=== PATIENT | female | born 1940 | race Caucasian/White ===

== ENCOUNTER 2016-07-06 08:00 | Outpatient (CLI) | payer MEDICARE | END 2016-07-06 23:59 | DX: N30.00 Acute cystitis without hematuria (principal) ==

== ENCOUNTER 2016-08-24 11:23 | Outpatient (CLI) | payer MEDICARE | END 2016-08-24 11:24 | DX: R30.0 Dysuria (principal) ==

== ENCOUNTER 2016-10-05 10:11 | Outpatient (CLI) | payer MEDICARE | END 2016-10-05 10:12 | disposition home or self-care (01) | DX: E03.9 Hypothyroidism, unspecified (principal); Z79.01 Long term (current) use of anticoagulants; I82.409 Acute embolism and thrombosis of unspecified deep veins of unspecified lower extremity ==

== ENCOUNTER 2016-10-12 15:29 | Outpatient (CLI) | payer MEDICARE | END 2016-10-12 15:30 | disposition home or self-care (01) | DX: I80.02 Phlebitis and thrombophlebitis of superficial vessels of left lower extremity (principal); Z79.01 Long term (current) use of anticoagulants ==

== ENCOUNTER 2016-10-15 07:41 | Outpatient (CLI) | payer MEDICARE | END 2016-10-15 07:42 | disposition home or self-care (01) | DX: Z79.01 Long term (current) use of anticoagulants (principal); I82.409 Acute embolism and thrombosis of unspecified deep veins of unspecified lower extremity ==

== ENCOUNTER 2016-10-15 13:34 | Emergency (ER) | payer MEDICARE | END 2016-10-15 17:24 | disposition home or self-care (01) | DX: R19.5 Other fecal abnormalities (principal); R79.1 Abnormal coagulation profile; I82.409 Acute embolism and thrombosis of unspecified deep veins of unspecified lower extremity; Z79.01 Long term (current) use of anticoagulants; Z87.891 Personal history of nicotine dependence ==

== ENCOUNTER 2016-10-18 14:53 | Outpatient (CLI) | payer MEDICARE | END 2016-10-18 14:54 | disposition home or self-care (01) | DX: Z79.01 Long term (current) use of anticoagulants (principal); I82.409 Acute embolism and thrombosis of unspecified deep veins of unspecified lower extremity ==

== ENCOUNTER 2016-10-25 13:08 | Outpatient (CLI) | payer MEDICARE | END 2016-10-25 13:09 | disposition home or self-care (01) | DX: Z79.01 Long term (current) use of anticoagulants (principal); I82.409 Acute embolism and thrombosis of unspecified deep veins of unspecified lower extremity ==

== ENCOUNTER 2016-11-01 13:50 | Outpatient (CLI) | payer MEDICARE | END 2016-11-01 13:51 | disposition home or self-care (01) | DX: Z79.01 Long term (current) use of anticoagulants (principal); I82.409 Acute embolism and thrombosis of unspecified deep veins of unspecified lower extremity ==

== ENCOUNTER 2016-11-04 08:00 | Outpatient (CLI) | payer MEDICARE | END 2016-11-04 08:01 | disposition home or self-care (01) | DX: R82.5 Elevated urine levels of drugs, medicaments and biological substances (principal); R30.0 Dysuria ==

== ENCOUNTER 2016-11-08 11:24 | Outpatient (CLI) | payer MEDICARE | END 2016-11-08 11:25 | disposition home or self-care (01) | DX: Z79.01 Long term (current) use of anticoagulants (principal); I82.409 Acute embolism and thrombosis of unspecified deep veins of unspecified lower extremity ==

== ENCOUNTER 2016-11-15 13:08 | Outpatient (CLI) | payer MEDICARE | END 2016-11-15 13:09 | disposition home or self-care (01) | DX: Z79.01 Long term (current) use of anticoagulants (principal); I82.409 Acute embolism and thrombosis of unspecified deep veins of unspecified lower extremity ==

== ENCOUNTER 2016-11-29 13:10 | Outpatient (CLI) | payer MEDICARE ==
[2016-11-29 18:03] LABS: BASOPHILS % (AUTO) 0.8 %; EOSINOPHILS # (AUTO) 0.1 10^3/uL (0.0-0.7); EOSINOPHILS % (AUTO) 2.5 %; HCT - HEMATOCRIT 41.2 % (37.0-47.0); HGB - HEMOGLOBIN 13.7 g/dL (12.0-16.0); LYMPHOCYTES # (AUTO) 0.9 10^3/uL (1.5-3.5); LYMPHOCYTES % (AUTO) 16.1 %; MEAN CORPUSCULAR HEMOGLOBIN 27.5 pg (27.0-31.0); MEAN CORPUSCULAR HGB CONC 33.2 g/dL (32.0-36.0); MEAN CORPUSCULAR VOLUME 82.8 fL (81.0-99.0); MEAN PLATELET VOLUME 7.2 fL (7.9-10.8); MONOCYTES # (AUTO) 0.4 10^3/uL (0.0-1.0); MONOCYTES % (AUTO) 6.2 %; NEUTROPHILS # (AUTO) 4.2 10^3/uL (1.5-6.6); NEUTROPHILS % (AUTO) 74.4 %; RED BLOOD COUNT 4.98 10^6/uL (4.20-5.40); RED CELL DISTRIBUTION WIDTH 15.2 % (12.0-15.0); UNCORRECTED WHITE BLOOD COUNT 5.7 x10^3/uL; WHITE BLOOD COUNT 5.7 x10^3/uL (4.8-10.8)
[2016-11-29 18:23] LABS: INR 2.8 (0.8-1.2); PT - PROTHROMBIN TIME 31.5 secs (9.9-12.6)
[2016-11-29 19:07] LABS: ALBUMIN/GLOBULIN RATIO 1.3 (1.0-2.2); BILIRUBIN,TOTAL 0.5 mg/dL (0.2-1.0); BUN - BLOOD UREA NITROGEN 21 mg/dL (6-20); CALCIUM 9.1 mg/dL (8.5-10.3); CARBON DIOXIDE - CO2 30 mmol/L (21-32); CHLORIDE 103 mmol/L (101-111); CREATININE 0.8 mg/dL (0.4-1.0); GFR - MDRD 70 (>89); GLUCOSE 89 mg/dL (70-100); POTASSIUM 4.3 mmol/L (3.5-5.0); SODIUM 139 mmol/L (135-145)
[2016-11-29 19:14] LABS: LIPASE < 10 U/L (22-51)
== END 2016-11-29 13:11 | disposition home or self-care (01) ==
LOC: LAB.F 13:10
PROVIDERS: ATTEND Internal Medicine
DX: R10.84 Generalized abdominal pain (principal); I82.409 Acute embolism and thrombosis of unspecified deep veins of unspecified lower extremity
CPT/HCPCS: 36415; 80053; 83690; 85025; 85610

== ENCOUNTER 2016-12-01 11:00 | Outpatient (CLI) | payer MEDICARE | END 2016-12-01 11:01 | disposition home or self-care (01) | LOC: LAB.R 11:00 | PROVIDERS: ATTEND Nurse Practitioner Primary Care | DX: N30.00 Acute cystitis without hematuria (principal) | CPT/HCPCS: 87086 ==

== ENCOUNTER 2016-12-02 12:43 | Outpatient (CLI) | payer MEDICARE ==
[2016-12-02] MEDS ORDERED: IOPAMIDOL-300 100 ML VIAL IVP ONE (14:38)
[2016-12-02] MEDS ORDERED: IOPAMIDOL-300 50 ML VIAL PO ONE (14:38)
--- NOTE | 2016-12-03 09:50 | CT Report ---
CT ABDOMEN AND PELVIS WITH CONTRAST: 12/02/2016 CLINICAL INDICATION: Abdominal pain, urinary retention. COMPARISON: 12/08/2012 TECHNIQUE: Axial CT images of the abdomen and pelvis were obtained with 100 mL Isovue-300 intravenou sly as well as oral contrast. In accordance with CT protocol optimization, one or more of the following dose reduction techniques w ere utilized for this exam: automated exposure control, adjustment of mA and/or KV based on patient size, or use of iterative reconstructive technique. FINDINGS: Limited evaluation of the lung bases is unremarkable. Abdomen: Postoperative changes of cholecystectomy are unchanged. Biliary dilatation appears stable. There is pancreatic atrophy. The spleen, kidneys, and adrenal glands are unremarkable. No bowel d ilatation, free gas, or free fluid is present. No abdominal adenopathy is seen. Pelvis: There is a 2-cm cyst in the right adnexa, likely ovarian in origin. Postoperative changes o f hysterectomy are present. The appendix is seen in the right lower quadrant, and is normal in calib er. No pelvic adenopathy or free fluid is present. Osseous structures demonstrate degenerative changes. IMPRESSION: 1. A 2-CM RIGHT ADNEXAL CYST, LIKELY OVARIAN IN ORIGIN. 2. PANCREATIC ATROPHY. 3. NO EVIDENT ETIOLOGY FOR PATIENT'S PAIN OR URINARY RETENTION. JOB #: [id number] EXT JOB #:[id number]
== END 2016-12-02 12:44 | disposition home or self-care (01) ==
LOC: DI 12:43
PROVIDERS: ATTEND Internal Medicine
DX: R10.84 Generalized abdominal pain (principal); R33.9 Retention of urine, unspecified; N94.89 Other specified conditions associated with female genital organs and menstrual cycle; K86.89 Other specified diseases of pancreas
CPT/HCPCS: 74177; Q9967

== ENCOUNTER 2016-12-08 13:15 | Outpatient (CLI) | payer MEDICARE | END 2016-12-08 13:16 | disposition home or self-care (01) | LOC: LAB.F 13:15 | PROVIDERS: ATTEND Internal Medicine | DX: Z79.01 Long term (current) use of anticoagulants (principal) | CPT/HCPCS: 85610 ==

== ENCOUNTER 2016-12-22 08:10 | Outpatient (CLI) | payer MEDICARE ==
--- NOTE | 2016-12-22 10:29 | Ultrasound Report ---
LEFT LEG VENOUS DUPLEX: 12/22/2016 CLINICAL INDICATION: History of DVT following surgery in August. TECHNIQUE: Real-time sonographic vascular imaging was performed by the painter assistant through the left l ower extremity utilizing both color flow and Doppler spectral analysis. Multiple farm loan representative stat ic images were saved for review. FINDINGS: A left lower extremity venous sonogram is performed revealing the common femoral, superfici al femoral, profunda femoris, and popliteal veins to be adequately visualized without intraluminal de fects. There is normal venous compression, augmentation, phasicity, and spontaneity of venous flow. In the calf, the visualized more cephalad portions of posterior tibial and peroneal veins are grossly compressible, without filling defects. IMPRESSION: NO EVIDENCE OF DEEP VENOUS THROMBOSIS. JOB #: [id number] EXT JOB #:[id number]
== END 2016-12-22 08:11 | disposition home or self-care (01) ==
LOC: DI 08:10
PROVIDERS: ATTEND Internal Medicine
DX: I82.492 Acute embolism and thrombosis of other specified deep vein of left lower extremity (principal)

== ENCOUNTER 2016-12-22 10:13 | Outpatient (CLI) | payer MEDICARE ==
--- NOTE | 2016-12-22 10:28 | Ultrasound Report ---
PELVIC ULTRASOUND: 12/22/2016 CLINICAL INDICATION: Right adnexal cyst on CT. TECHNIQUE: Transabdominal pelvic ultrasound performed for global evaluation. Transvaginal pelvic ul trasound performed for detailed evaluation. Real-time scanning performed and static images obtained. FINDINGS: The uterus is surgically absent. The right ovary measures 2.1 x 2.1 x 2.0 cm, and contain s a simple 2.0 x 1.9 x 1.8 cm cyst. The left ovary was not confidently identified on transabdominal or transvaginal imaging. No free fluid is present. No left adnexal mass is seen. IMPRESSION: SIMPLE 2.0 CM RIGHT OVARIAN CYST. JOB #: [id number] EXT JOB #:[id number]
== END 2016-12-22 10:14 | disposition home or self-care (01) ==
LOC: DI 10:13
PROVIDERS: ATTEND Nurse Practitioner Primary Care
DX: N83.201 Unspecified ovarian cyst, right side (principal); I82.409 Acute embolism and thrombosis of unspecified deep veins of unspecified lower extremity; Z79.01 Long term (current) use of anticoagulants
CPT/HCPCS: 76830; 76856; 85610

== ENCOUNTER 2017-01-10 07:57 | Outpatient (CLI) | payer MEDICARE ==
[2017-01-10 12:55] LABS: CHOL/HDL RATIO 4.5 (<4.4); CHOLESTEROL 255 mg/dL; HDL CHOLESTEROL 57 mg/dL; LDL/HDL RATIO 3.1 (<4.4); TRIGLYCERIDES 122 mg/dL; VLDL CHOLESTEROL 24 mg/dL
== END 2017-01-10 07:58 | disposition home or self-care (01) ==
LOC: LAB.F 07:57
PROVIDERS: ATTEND Nurse Practitioner Primary Care
DX: E78.2 Mixed hyperlipidemia (principal)
CPT/HCPCS: 36415; 80061

== ENCOUNTER 2017-05-27 10:53 | Outpatient (CLI) | payer MEDICARE ==
[2017-05-27 15:50] LABS: BASOPHILS % (AUTO) 0.3 %; EOSINOPHILS # (AUTO) 0.2 10^3/uL (0.0-0.7); EOSINOPHILS % (AUTO) 4.3 %; HGB - HEMOGLOBIN 14.5 g/dL (12.0-16.0); LYMPHOCYTES # (AUTO) 0.8 10^3/uL (1.5-3.5); LYMPHOCYTES % (AUTO) 15.5 %; MEAN CORPUSCULAR HEMOGLOBIN 28.2 pg (27.0-31.0); MEAN CORPUSCULAR HGB CONC 33.7 g/dL (32.0-36.0); MEAN CORPUSCULAR VOLUME 83.6 fL (81.0-99.0); MEAN PLATELET VOLUME 7.3 fL (7.9-10.8); MONOCYTES # (AUTO) 0.3 10^3/uL (0.0-1.0); MONOCYTES % (AUTO) 5.9 %; RED BLOOD COUNT 5.14 10^6/uL (4.20-5.40); RED CELL DISTRIBUTION WIDTH 13.9 % (12.0-15.0); UNCORRECTED WHITE BLOOD COUNT 5.4 x10^3/uL; WHITE BLOOD COUNT 5.4 x10^3/uL (4.8-10.8)
[2017-05-27 16:05] LABS: ALBUMIN/GLOBULIN RATIO 1.3 (1.0-2.2); BUN - BLOOD UREA NITROGEN 15 mg/dL (6-20); CALCIUM 9.1 mg/dL (8.5-10.3); CARBON DIOXIDE - CO2 27 mmol/L (21-32); CHLORIDE 101 mmol/L (101-111); CREATININE 0.9 mg/dL (0.4-1.0); GFR - MDRD 61 (>89); GLUCOSE 83 mg/dL (70-100); POTASSIUM 4.6 mmol/L (3.5-5.0); SODIUM 137 mmol/L (135-145); TOTAL PROTEIN 7.4 g/dL (6.7-8.2)
== END 2017-05-27 10:54 | disposition home or self-care (01) ==
LOC: LAB.R 10:53
PROVIDERS: ATTEND Nurse Practitioner Primary Care
DX: R19.7 Diarrhea, unspecified (principal)
CPT/HCPCS: 80053; 84443; 85025; 85651; 86140

== ENCOUNTER 2017-05-31 09:57 | Outpatient (CLI) | payer MEDICARE | END 2017-05-31 09:58 | disposition home or self-care (01) | LOC: LAB.F 09:57 | PROVIDERS: ATTEND Nurse Practitioner Primary Care | DX: R19.7 Diarrhea, unspecified (principal) | CPT/HCPCS: 85651 ==

== ENCOUNTER 2017-06-02 13:08 | Outpatient (CLI) | payer MEDICARE ==
[2017-06-04 14:21] LABS: TEST RESULT REPORT
[2017-06-07 00:16] LABS: TEST RESULT REPORT (())
== END 2017-06-02 13:09 | disposition home or self-care (01) ==
LOC: LAB.R 13:08
PROVIDERS: ATTEND Nurse Practitioner Primary Care
DX: R19.7 Diarrhea, unspecified (principal)
CPT/HCPCS: 81599; 82270; 83630; 87177; 87209; 87329; 87493; 89055

== ENCOUNTER 2017-09-27 10:17 | Outpatient (CLI) | payer MEDICARE ==
[2017-09-27 17:40] LABS: ALKALINE PHOSPHATASE 138 IU/L (42-121); ALT ALANINE AMINOTRANSFERASE 85 IU/L (10-60); AST ASPARTATE AMINOTRANSFERASE 65 IU/L (10-42); BILIRUBIN,TOTAL 0.6 mg/dL (0.2-1.0); TOTAL PROTEIN 7.1 g/dL (6.7-8.2)
[2017-09-27 18:43] LABS: BILIRUBIN,DIRECT < 0.1 mg/dL (0.1-0.5); LIPASE < 10 U/L (22-51)
== END 2017-09-27 10:18 | disposition home or self-care (01) ==
LOC: LAB.F 10:17
PROVIDERS: ATTEND Internal Medicine Gastroenterology
DX: R10.84 Generalized abdominal pain (principal)
CPT/HCPCS: 36415; 80076; 83690

== ENCOUNTER 2018-01-10 07:17 | Outpatient (CLI) | payer MEDICARE ==
[2018-01-10 13:08] LABS: BASOPHILS % (AUTO) 0.6 %; EOSINOPHILS # (AUTO) 0.3 10^3/uL (0.0-0.7); EOSINOPHILS % (AUTO) 5.5 %; HGB - HEMOGLOBIN 13.9 g/dL (12.0-16.0); LYMPHOCYTES # (AUTO) 1.1 10^3/uL (1.5-3.5); LYMPHOCYTES % (AUTO) 19.2 %; MEAN CORPUSCULAR HEMOGLOBIN 28.2 pg (27.0-31.0); MEAN CORPUSCULAR HGB CONC 32.9 g/dL (32.0-36.0); MEAN CORPUSCULAR VOLUME 85.6 fL (81.0-99.0); MEAN PLATELET VOLUME 7.1 fL (7.9-10.8); MONOCYTES # (AUTO) 0.4 10^3/uL (0.0-1.0); MONOCYTES % (AUTO) 6.5 %; NEUTROPHILS # (AUTO) 3.9 10^3/uL (1.5-6.6); NEUTROPHILS % (AUTO) 68.2 %; PLT - PLATELET COUNT 184 10^3/uL (130-450); RED BLOOD COUNT 4.93 10^6/uL (4.20-5.40); RED CELL DISTRIBUTION WIDTH 14.1 % (12.0-15.0); WHITE BLOOD COUNT 5.7 x10^3/uL (4.8-10.8)
[2018-01-10 13:28] LABS: ALBUMIN 3.5 g/dL (3.2-5.5); ALKALINE PHOSPHATASE 94 IU/L (42-121); ALT ALANINE AMINOTRANSFERASE 13 IU/L (10-60); AST ASPARTATE AMINOTRANSFERASE 12 IU/L (10-42); BILIRUBIN,TOTAL 0.7 mg/dL (0.2-1.0); BUN - BLOOD UREA NITROGEN 20 mg/dL (6-20); CALCIUM 8.8 mg/dL (8.5-10.3); CARBON DIOXIDE - CO2 30 mmol/L (21-32); CHLORIDE 102 mmol/L (101-111); CHOLESTEROL 178 mg/dL; CREATININE 0.8 mg/dL (0.4-1.0); GFR - MDRD 70 (>89); GLUCOSE 109 mg/dL (70-100); HDL CHOLESTEROL 60 mg/dL; LDL CHOLESTEROL,CALCULATED 95 mg/dL; LDL/HDL RATIO 1.6 (<4.4); SODIUM 137 mmol/L (135-145); TOTAL PROTEIN 6.9 g/dL (6.7-8.2); VLDL CHOLESTEROL 23 mg/dL
== END 2018-01-10 07:18 | disposition home or self-care (01) ==
LOC: LAB.F 07:17
PROVIDERS: ATTEND Internal Medicine
DX: R71.8 Other abnormality of red blood cells (principal); Z79.899 Other long term (current) drug therapy; E03.9 Hypothyroidism, unspecified; E78.5 Hyperlipidemia, unspecified
CPT/HCPCS: 36415; 80053; 80061; 83721; 84443; 85025

== ENCOUNTER 2018-01-30 13:40 | Outpatient (CLI) | payer MEDICARE ==
--- NOTE | 2018-01-30 14:35 | XRAY Report ---
Procedure Date: 01/30/2018 Accession Number: [id number] / [id number] Procedure: XR - Chest 2 View X-Ray CPT Code: 00276 FULL RESULT: EXAM: Chest 2 View X-Ray DATE: 01/30/2018 2:22 PM CLINICAL HISTORY: COUGH COMPARISON: None. TECHNIQUE: 2 views. FINDINGS: Lungs/Pleura: No focal opacities evident. No pneumothorax or pleural effusion. Normal volumes. Mediastinum: Heart and mediastinal contours are unremarkable. Other: Surgical clips are noted in the right breast. IMPRESSION: Normal 2-view chest radiography. RADIA
== END 2018-01-30 13:41 | disposition home or self-care (01) ==
LOC: DI 13:40
PROVIDERS: ATTEND Physician Assistant Medical
DX: R05 Cough (principal); R09.89 Other specified symptoms and signs involving the circulatory and respiratory systems
CPT/HCPCS: 71046

== ENCOUNTER 2018-02-08 08:25 | Day surgery (SDC) | payer MEDICARE ==
[2018-02-08] MEDS ORDERED: LACTATED RINGERS 1,000 ML IV ONE ×2 (08:59→10:41)
[2018-02-08] MEDS ORDERED: fentaNYL 250 MCG/5 ML VIAL IVP ONE (10:15)
[2018-02-08] MEDS ORDERED: MIDAZOLAM 2 MG/2 ML VIAL IVP ONE (10:15)
[2018-02-08] MEDS ORDERED: PROPOFOL 200 MG/20 ML VIAL IVP ONE (10:48)
[2018-02-08 11:16] VITALS: BP 125/87
== END 2018-02-08 08:26 | disposition home or self-care (01) ==
LOC: SDS 08:25
PROVIDERS: ATTEND Internal Medicine
PROC: 0DBL8ZZ Excision of Transverse Colon, Via Natural or Artificial Opening Endoscopic (ICD-10-PCS; principal; 2018-02-08 09:30)
DX: Z12.11 Encounter for screening for malignant neoplasm of colon (principal); Z86.010 Personal history of colon polyps; D12.3 Benign neoplasm of transverse colon; K64.8 Other hemorrhoids; T88.52XA Failed moderate sedation during procedure, initial encounter; E78.5 Hyperlipidemia, unspecified
CPT/HCPCS: 45380; J3010; J7120

== ENCOUNTER 2018-03-22 15:31 | Outpatient (CLI) | payer MEDICARE | END 2018-03-22 15:32 | disposition home or self-care (01) | LOC: LAB.R 15:31 | PROVIDERS: ATTEND Nurse Practitioner Primary Care | DX: N39.0 Urinary tract infection, site not specified (principal) | CPT/HCPCS: 87086 ==

== ENCOUNTER 2018-06-29 08:00 | Outpatient (CLI) | payer MEDICARE | END 2018-06-29 23:59 | disposition home or self-care (01) | LOC: LAB.R 08:00 | PROVIDERS: ATTEND Nurse Practitioner Primary Care | DX: N39.0 Urinary tract infection, site not specified (principal) | CPT/HCPCS: 87086 ==

== ENCOUNTER 2018-10-04 10:00 | Outpatient (CLI) | payer MEDICARE | END 2018-10-04 10:01 | disposition home or self-care (01) | LOC: NS 10:00 | PROVIDERS: ATTEND Nurse Practitioner Family | DX: Z71.3 Dietary counseling and surveillance (principal); K58.0 Irritable bowel syndrome with diarrhea | CPT/HCPCS: 97802 ==

== ENCOUNTER 2018-11-23 12:47 | Outpatient (CLI) | payer MEDICARE ==
--- NOTE | 2018-11-23 14:43 | DEXA Report ---
Reason: ASYMPTOMATIC MENOPAUSAL STATE Procedure Date: 11/23/2018 Accession Number: [id number] / [id number] Procedure: DEX - Dexa Spine and/or Hip CPT Code: FULL RESULT: EXAM: Dexa Spine and/or Hip DATE: 11/23/2018 1:18 PM CLINICAL HISTORY: ASYMPTOMATIC POSTMENOPAUSAL STATE TECHNIQUE: Dual energy x-ray absorptiometry (DXA) was performed on a [employer] System. Regions measured are the AP Spine, femoral neck, and if needed forearm. COMPARISON: 10/21/2015 In accordance with the International Society for Clinical Densitometry (ISCD) guidelines, data from previous exams may be reanalyzed using current recommendations and techniques. This is done to allow a more accurate basis for comparison with the current study. FINDINGS: The data for the lumbar spine is as follows: BMD (g/cm/cm) T-SCORE Z-SCORE REGION L1 0.844 -2.4 -0.7 L2 0.929 -2.3 -0.6 L3 1.054 -1.2 0.5 L4 1.081 -1.0 0.7 TOTAL 0.998 -1.5 0.2 NOTE: All evaluable vertebrae are used for classification The data for the hip is as follows: BMD (g/cm/cm) T-SCORE Z-SCORE REGION Neck 0.860 -1.3 0.7 TOTAL 0.854 -1.2 0.5 NOTE: The femoral neck or total proximal femur, whichever is lowest, is used for classification. IMPRESSION: THE WHO CLASSIFICATION BASED ON THE INTERNATIONAL REFERENCE STANDARD IS OSTEOPENIA, REFERENCE LUMBAR SPINE.. THE FRACTURE RISK IS INCREASED. RECOMMENDATION: Patients with diagnosis of osteoporosis or osteopenia should have regular bone mineral density assessment. For those eligible for Medicare, routine testing is allowed once every 2 years. Testing frequency can be increased for patients who have rapidly progressing disease or for those who are receiving medical therapy to restore bone mass. COMMENT: World Health Organization (WHO) definitions for osteoporosis and osteopenia: NORMAL BMD: T-score at -1.0 or higher, fracture risk is low OSTEOPENIA BMD: T-score between -1.0 and -2.5, fracture risk is increased. OSTEOPOROSIS BMD: T-score at -2.5 or lower, fracture risk is high. National Osteoporosis Foundation recommends: 1. Obtain adequate dietary calcium (at least 1200 mg per day) and vitamin D (400-800 international units per day). 2. Participate, as appropriate, in regular weightbearing and muscle-strengthening exercise. 3. Avoid tobacco use and reduce alcohol and caffeine intake. 4. For more detailed information see the website at www.NOF.org.
== END 2018-11-23 12:48 | disposition home or self-care (01) ==
LOC: DI 12:47
PROVIDERS: ATTEND Internal Medicine
DX: M85.89 Other specified disorders of bone density and structure, multiple sites (principal)
CPT/HCPCS: 77080

== ENCOUNTER 2019-08-17 12:25 | Outpatient (CLI) | payer MEDICARE | END 2019-08-17 12:26 | disposition home or self-care (01) | LOC: LAB.S 12:25 | PROVIDERS: ATTEND Nurse Practitioner Family | DX: Z53.9 Procedure and treatment not carried out, unspecified reason (principal) ==

== ENCOUNTER 2019-08-20 09:13 | Outpatient (CLI) | payer MEDICARE ==
[2019-08-20 18:38] LABS: % IRON SATURATION 27 % (20-50); IRON 81 ug/dL (28-170); TOTAL IRON BINDING CAPACITY 305 ug/dL (250-450); TRANSFERRIN 218 mg/dL (192-382)
[2019-08-20 19:27] LABS: FOLATE 11.71 ng/mL (5.90 - >24.8)
== END 2019-08-20 09:14 | disposition home or self-care (01) ==
LOC: LAB.S 09:13
PROVIDERS: ATTEND Nurse Practitioner Family
DX: K14.6 Glossodynia (principal)
CPT/HCPCS: 36415; 82607; 82746; 83540; 84207; 84466

== ENCOUNTER 2020-04-15 12:59 | Outpatient (CLI) | payer MEDICARE ==
--- NOTE | 2020-04-15 15:21 | XRAY Report ---
PROCEDURE: Cervical Spine 2 View INDICATIONS: CERVICALGIA TECHNIQUE: 3 view(s) of the cervical spine were acquired. COMPARISON: None. FINDINGS: Bones: No fractures or dislocations to the T1 level. The lateral masses of C1 appear intact on the odontoid view. No suspicious bony lesions. Soft tissues: No prevertebral soft tissue swelling. IMPRESSION: There is moderate to moderately severe degenerative disc disease at C5-6 and C6-7. No penny bluxation is associated. 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 No prior trauma found. Reviewed by: Emigdio Bailey MD on 04/15/2020 3:20 PM PDT Approved by: Emigdio Bailey MD on 04/15/2020 3:20 PM PDT Station ID: [id number]
== END 2020-04-15 13:00 | disposition home or self-care (01) ==
LOC: DI 12:59
PROVIDERS: ATTEND Internal Medicine
DX: M50.322 Other cervical disc degeneration at C5-C6 level (principal); M47.812 Spondylosis without myelopathy or radiculopathy, cervical region
CPT/HCPCS: 72040

== ENCOUNTER 2020-10-30 11:01 | Outpatient (CLI) | payer MEDICARE ==
--- NOTE | 2020-10-30 14:34 | XRAY Report ---
PROCEDURE: Cervical Spine 2 View INDICATIONS: NECK PX CERVICALGIA TECHNIQUE: 3 views of the cervical spine were acquired. COMPARISON: Cervical spine radiographs 04/15/2020 FINDINGS: Bones: No fractures or dislocations to the C7 level. The lateral masses of C1 appear intact on the odontoid view. No suspicious bony lesions. Mild disc space narrowing and endplate degenerative hardy ges are seen at the C5-6 and C6-7 levels. Facet and uncovertebral joint hypertrophy is seen throughou t the mid to lower cervical spine. Soft tissues: No prevertebral soft tissue swelling. IMPRESSION: No acute osseous abnormality. Multilevel spondylosis. Further evaluation with MRI may be obtained if indicated clinically. Reviewed by: Tahir Bansal MD on 10/30/2020 2:33 PM PDT Approved by: Tahir Bansal MD on 10/30/2020 2:33 PM PDT Station ID: [id number]
--- NOTE | 2020-10-30 15:08 | XRAY Report ---
PROCEDURE: Knee 3 View RT INDICATIONS: PX IN RT KNEE TECHNIQUE: 3 views of the right knee were acquired. COMPARISON: None. FINDINGS: Bones: Postsurgical changes are seen from right total knee arthroplasty with expected alignment. No s igns of loosening or perihardware fracture. No suspicious bony lesions. Soft tissues: Small joint effusion. No suspicious soft tissue calcifications. IMPRESSION: Status post right total knee arthroplasty. Small joint effusion. No acute osseous abnorm ality is identified. Reviewed by: Tahir Bansal MD on 10/30/2020 3:07 PM PDT Approved by: Tahir Bansal MD on 10/30/2020 3:07 PM PDT Station ID: [id number]
== END 2020-10-30 11:02 | disposition home or self-care (01) ==
LOC: DI.S 11:01
PROVIDERS: ATTEND Nurse Practitioner Family
DX: M54.2 Cervicalgia (principal); M47.812 Spondylosis without myelopathy or radiculopathy, cervical region; M25.561 Pain in right knee; M25.461 Effusion, right knee; Z96.651 Presence of right artificial knee joint

== ENCOUNTER 2020-11-10 13:08 | Outpatient (CLI) | payer MEDICARE ==
--- NOTE | 2020-11-10 17:02 | CT Report ---
PROCEDURE: LOWER EXTREMITY WO - RT INDICATIONS: PAIN IN RIGHT KNEE TECHNIQUE: Noncontrast 1 mm axial sections acquired of the right knee, with coronal and sagittal reformats. COMPARISON: Right knee radiograph dated 10/30/2020. FINDINGS: Image quality: Diagnostic. Bones: Patient is status post prior right total knee arthroplasty with anatomic right knee alignment . No acute fracture or dislocation is seen. No gross hardware loosening or failure is seen. Osteoarth ritic changes are noted involving articulation between anteromedial fibular head and posterior latera l proximal tibial shaft. No suspicious intraosseous lesion. Soft tissues: Small to moderate suprapatellar joint effusion is seen. No intra-articular loose body. No abnormal soft tissue calcifications. Distal quadriceps tendon and patellar tendon are grossly int act. IMPRESSION: 1. Prior right total knee arthroplasty with anatomic right knee alignment. No acute fracture or dislo cation. No evidence of hardware complication. 2. Osteoarthritic changes involving proximal tibial-fibular articulation as above. No suspicious intr aosseous lesion. 3. Small suprapatellar joint effusion. No abnormal soft tissue calcification. No gross muscle or soft tissue abnormality is seen. Reviewed by: Luca Bay MD on 11/10/2020 5:01 PM PDT Approved by: Luca Bay MD on 11/10/2020 5:01 PM PDT Station ID: [id number]
== END 2020-11-10 13:09 | disposition home or self-care (01) ==
LOC: DI 13:08
PROVIDERS: ATTEND Nurse Practitioner Family
DX: Z96.651 Presence of right artificial knee joint (principal); M17.11 Unilateral primary osteoarthritis, right knee; M25.461 Effusion, right knee

== ENCOUNTER 2021-01-13 09:13 | Outpatient (CLI) | payer MEDICARE ==
[2021-01-13 15:11] LABS: BASOPHILS % (AUTO) 0.6 %; EOSINOPHILS # (AUTO) 0.2 10^3/uL (0.0-0.7); HCT - HEMATOCRIT 43.3 % (37.0-47.0); LYMPHOCYTES # (AUTO) 0.9 10^3/uL (1.5-3.5); MEAN CORPUSCULAR HEMOGLOBIN 26.4 pg (27.0-31.0); MEAN PLATELET VOLUME 8.8 fL (7.9-10.8); MONOCYTES # (AUTO) 0.3 10^3/uL (0.0-1.0); MONOCYTES % (AUTO) 5.7 %; NEUTROPHILS # (AUTO) 3.4 10^3/uL (1.5-6.6); NEUTROPHILS % (AUTO) 71.3 %; PLT - PLATELET COUNT 180 10^3/uL (130-450); RED BLOOD COUNT 4.92 10^6/uL (4.20-5.40); RED CELL DISTRIBUTION WIDTH 13.9 % (12.0-15.0); WHITE BLOOD COUNT 4.7 x10^3/uL (4.8-10.8)
[2021-01-13 16:23] LABS: ALBUMIN 3.9 g/dL (3.2-5.5); ALBUMIN/GLOBULIN RATIO 1.4 (1.0-2.2); BILIRUBIN,TOTAL 0.8 mg/dL (0.2-1.0); CALCIUM 8.9 mg/dL (8.5-10.3); CREATININE 0.8 mg/dL (0.4-1.0); POTASSIUM 3.8 mmol/L (3.5-5.0); TOTAL PROTEIN 6.6 g/dL (6.7-8.2)
== END 2021-01-13 09:14 | disposition home or self-care (01) ==
LOC: LAB.S 09:13
PROVIDERS: ATTEND Internal Medicine
DX: R39.82 Chronic bladder pain (principal)
CPT/HCPCS: 36415; 80053; 85025

== ENCOUNTER 2021-01-19 11:06 | Outpatient (CLI) | payer MEDICARE ==
[2021-01-19] MEDS ORDERED: IOVERSOL 320 50 ML VIAL ONE (11:17)
[2021-01-19] MEDS ORDERED: IOPAMIDOL-300 100 ML VIAL ONE (11:17)
[2021-01-19] MEDS ORDERED: IOVERSOL 320 50 ML VIAL PO ONE (13:18)
[2021-01-19] MEDS ORDERED: IOPAMIDOL-300 100 ML VIAL IVP ONE (13:18)
--- NOTE | 2021-01-19 17:50 | CT Report ---
PROCEDURE: Abdomen/Pelvis W INDICATIONS: BLADDER PAIN CONTRAST: IV CONTRAST: Isovue 300 ml: 100 PO CONTRAST: Optiray 320 ml50 TECHNIQUE: After the administration of 100 mL contrast, 5 mm thick sections acquired from the diaphragms to the symphysis. 5 mm thick coronal and sagittal reformats were acquired. For radiation dose reduction, t he following was used: automated exposure control, adjustment of mA and/or kV according to patient s ize. COMPARISON: None. FINDINGS: Image quality: Excellent. ABDOMEN: Lung bases: Lung bases are clear. Heart size is normal. Solid organs: The liver has no mass. There is diffuse intrahepatic biliary ductal dilatation, unchang ed compared to the prior CT in 2017. The patient is status post cholecystectomy. The pancreas demonst rates diffuse fatty atrophy. No pancreatic mass or pancreatic ductal dilatation. No adrenal nodules. The left kidney demonstrates parapelvic cysts. Peritoneum and bowel: Bowel loops demonstrate normal wall thickness and caliber. No free fluid or a ir. There is a 3 cm fluid collection in the central abdomen superior to the bladder which is unchang ed compared to a prior CT in 2017. Nodes and vessels: No retroperitoneal or mesenteric adenopathy by size criteria. Aorta and inferior vena cava are normal in size. Miscellaneous: No ventral hernias. PELVIS: Genitourinary: Bladder wall thickness is normal. Miscellaneous: No inguinal hernias or adenopathy. Bones: No suspicious bony lesions. No vertebral body compression fractures. IMPRESSION: 1. No acute abdominal or pelvic abnormality. 2. Normal bladder. 3. A 3 cm fluid collection superior to the bladder has a benign appearance and is unchanged compared to the prior CT in 2017. Reviewed by: Pelon Alcala on 01/19/2021 5:49 PM PDT Approved by: Pelon Alcala on 01/19/2021 5:49 PM PDT Station ID: [id number]
== END 2021-01-19 11:07 | disposition home or self-care (01) ==
LOC: DI 11:06
PROVIDERS: ATTEND Internal Medicine
DX: R39.82 Chronic bladder pain (principal)
CPT/HCPCS: 74177; Q9967

== ENCOUNTER 2021-10-15 14:22 | Outpatient (CLI) | payer MEDICARE ==
--- NOTE | 2021-10-15 23:31 | XRAY Report ---
PROCEDURE: Thoracic Spine 2 View INDICATIONS: THORACIC BACK PAIN TECHNIQUE: 2 views of the thoracic spine were acquired. COMPARISON: None. FINDINGS: Bones: No fractures or subluxation. There is a mild leftward curvature of the thoracolumbar spine ce ntered at L1. There is mild multilevel degenerative disease within the mid and lower thoracic spine. No suspicious bony lesions. 12 pairs of ribs are noted, and appear intact where visualized. Soft tissues: No paravertebral stripe thickening. IMPRESSION: 1. No fracture or subluxation. 2. Mild leftward curvature of the thoracolumbar spine. 3. Mild multilevel degenerative disc disease in the mid and lower thoracic spine. Reviewed by: Anirudh Lim MD on 10/15/2021 11:33 PM PDT Approved by: Anirudh Lim MD on 10/15/2021 11:33 PM PDT Station ID: [id number]
--- NOTE | 2021-10-16 11:24 | XRAY Report ---
PROCEDURE: Lumbar Spine 2 View INDICATIONS: THORACIC SPINE PAIN TECHNIQUE: 2 views of the lumbar spine were acquired. COMPARISON: Concurrent study of the thoracic spine. FINDINGS: Bones: 5 [id number]-[id number] vertebrae are present. There is a mild leftward curvature of the thoracolu mbar spine centered at L1. There is grade 1 anterolisthesis of L4 on L5 measuring approximately 0.6 c m. Mild multilevel disc space narrowing is demonstrated throughout the lumbar spine. There is mild fa cet arthropathy at L5-S1. No vertebral body compression fractures. No suspicious bony lesions. Soft tissues: Overlying bowel gas pattern is normal. No suspicious soft tissue calcifications. IMPRESSION: 1. Mild leftward curvature of the thoracolumbar spine and grade 1 anterolisthesis at L4-L5. 2. Mild multilevel degenerative disc disease and mild facet arthropathy at L5-S1. Reviewed by: Anirudh Lim MD on 10/16/2021 11:22 AM PDT Approved by: Anirudh Lim MD on 10/16/2021 11:22 AM PDT Station ID: [id number]
--- NOTE | 2021-10-16 12:21 | XRAY Report ---
PROCEDURE: Cervical Spine 2 View INDICATIONS: THORACIC BACK PAIN TECHNIQUE: 4 views of the cervical spine were acquired. COMPARISON: Cervical spine x-ray 10/30/2020. FINDINGS: Bones: No fractures or subluxation to the C7 level. The lateral masses of C1 appear grossly intact on the odontoid view. There is mild straightening of the cervical lordosis. There is multilevel degen erative disc disease in the mid and lower cervical spine including mild to moderate degeneration at C 5-C6 with prominent endplate osteophytosis. There is also mild to moderate facet arthropathy througho ut the cervical spine. No suspicious bony lesions. Soft tissues: No prevertebral soft tissue swelling. IMPRESSION: 1. Multilevel degenerative changes in the cervical spine as described. Reviewed by: Anirudh Lim MD on 10/16/2021 12:19 PM PDT Approved by: Anirudh Lim MD on 10/16/2021 12:19 PM PDT Station ID: [id number]
== END 2021-10-15 14:23 | disposition home or self-care (01) ==
LOC: DI.S 14:22
PROVIDERS: ATTEND Nurse Practitioner Family
DX: M51.34 Other intervertebral disc degeneration, thoracic region (principal); M43.16 Spondylolisthesis, lumbar region; M47.817 Spondylosis without myelopathy or radiculopathy, lumbosacral region; M51.37 Other intervertebral disc degeneration, lumbosacral region; M47.812 Spondylosis without myelopathy or radiculopathy, cervical region; M50.322 Other cervical disc degeneration at C5-C6 level

== ENCOUNTER 2021-10-27 12:50 | Outpatient (CLI) | payer MEDICARE | END 2021-10-27 23:59 | disposition home or self-care (01) | LOC: LAB 12:50 | PROVIDERS: ATTEND Physician Assistant Medical | DX: K13.79 Other lesions of oral mucosa (principal); Z20.822 Contact with and (suspected) exposure to COVID-19 | CPT/HCPCS: 87070; U0004 ==

== ENCOUNTER 2022-04-05 12:34 | Outpatient (CLI) | payer MEDICARE ==
--- NOTE | 2022-04-05 14:47 | DEXA Report ---
PROCEDURE: Dexa Spine and/or Hip INDICATIONS: OSTEOPENIA TECHNIQUE: Dual energy x-ray absorptiometry (DXA) was performed on a [employer] System. Regions measur ed are the AP Spine, femoral neck, and if needed forearm. COMPARISON: 10/21/2015. FINDINGS: Lumbar Spine: Bone Mineral Density 0.978 g/cm/cm,T score -1.7. There is interval 0.1% increase in total lumbar s pine bone mineral density. Left Hip: Bone Mineral Density 0.856 g/cm/cm,T score -1.2. There is interval 1.5% decrease in total left hip b one mineral density. Left Femoral Neck: Bone Mineral Density 0.804 g/cm/cm, T score -1.7. (T score greater or equal to -1.0: NORMAL) (T score from -1.1 to -2.4: OSTEOPENIA) (T score less than or equal to -2.5 to: OSTEOPOROSIS) Impression: Osteopenia. Patients with diagnosis of osteoporosis or osteopenia should have regular bone mineral density assess ment. For those eligible for Medicare, routine testing is allowed once every 2 years. Testing frequ ency can be increased for patients who have rapidly progressing disease or for those who are receivin g medical therapy to restore bone mass. Reviewed by: Luca Bay MD on 04/05/2022 2:46 PM PDT Approved by: Luca Bay MD on 04/05/2022 2:46 PM PDT Station ID: [id number]
== END 2022-04-05 12:35 | disposition home or self-care (01) ==
LOC: DI 12:34
PROVIDERS: ATTEND Nurse Practitioner Family
DX: M85.89 Other specified disorders of bone density and structure, multiple sites (principal)

== ENCOUNTER 2022-09-25 11:14 | Outpatient (CLI) | payer MEDICARE ==
--- NOTE | 2022-09-25 19:23 | XRAY Report ---
PROCEDURE: Sacrum/Coccyx INDICATIONS: PAIN IN COCCYX TECHNIQUE: 3 views of the sacrum and coccyx acquired. COMPARISON: Correlation is made with the overlapping portions of lumbar spine plain films, 10/15/2021 . FINDINGS: Bones: No fractures or dislocations. No suspicious bony lesions. Age-appropriate degenerative changes are seen. Osteitis pubis can be seen, which is not considered to be abnormal for a female patient of this age. Soft tissues: Visualized bowel gas pattern is normal. No suspicious soft tissue densities. Atheros clerotic calcification is seen. IMPRESSION: No significant plain film abnormality of the coccyx can be seen. Reviewed by: Mino Everett MD on 09/25/2022 6:21 PM HARI Approved by: Mino Everett MD on 09/25/2022 6:21 PM HARI Station ID: [id number]
== END 2022-09-25 11:15 | disposition home or self-care (01) ==
LOC: DI.S 11:14
PROVIDERS: ATTEND Nurse Practitioner Family
DX: M53.3 Sacrococcygeal disorders, not elsewhere classified (principal)

== ENCOUNTER 2023-06-08 10:34 | Outpatient (CLI) | payer MEDICARE ==
[2023-06-08 14:36] LABS: BASOPHILS % (AUTO) 0.8 %; EOSINOPHILS # (AUTO) 0.2 10^3/uL (0.0-0.7); EOSINOPHILS % (AUTO) 3.5 %; HCT - HEMATOCRIT 43.3 % (37.0-47.0); HGB - HEMOGLOBIN 13.5 g/dL (12.0-16.0); LYMPHOCYTES # (AUTO) 0.8 10^3/uL (1.5-3.5); LYMPHOCYTES % (AUTO) 16.1 %; MEAN CORPUSCULAR HEMOGLOBIN 26.9 pg (27.0-31.0); MEAN CORPUSCULAR HGB CONC 31.2 g/dL (32.0-36.0); MEAN CORPUSCULAR VOLUME 86.4 fL (81.0-99.0); MEAN PLATELET VOLUME 9.2 fL (7.9-10.8); MONOCYTES # (AUTO) 0.3 10^3/uL (0.0-1.0); MONOCYTES % (AUTO) 5.1 %; NEUTROPHILS # (AUTO) 3.8 10^3/uL (1.5-6.6); NEUTROPHILS % (AUTO) 74.3 %; PLT - PLATELET COUNT 183 10^3/uL (130-450); RED BLOOD COUNT 5.01 10^6/uL (4.20-5.40); RED CELL DISTRIBUTION WIDTH 14.5 % (12.0-15.0); WHITE BLOOD COUNT 5.1 x10^3/uL (4.8-10.8)
[2023-06-08 15:38] LABS: ALBUMIN 4.1 g/dL (3.2-5.5); ALBUMIN/GLOBULIN RATIO 1.6 (1.0-2.2); BILIRUBIN,TOTAL 0.5 mg/dL (0.2-1.0); CALCIUM 9.6 mg/dL (8.5-10.3); CREATININE 0.8 mg/dL (0.6-1.3); POTASSIUM 4.4 mmol/L (3.5-4.5); TOTAL PROTEIN 6.6 g/dL (6.4-8.9)
== END 2023-06-08 10:35 | disposition home or self-care (01) ==
LOC: LAB.S 10:34
PROVIDERS: ATTEND Physician Assistant Medical
DX: Z13.9 Encounter for screening, unspecified (principal)
CPT/HCPCS: 36415; 80053; 85025

== ENCOUNTER 2023-08-08 11:05 | Outpatient (CLI) | payer MEDICARE, OTHER ==
--- NOTE | 2023-08-08 14:14 | XRAY Report ---
PROCEDURE: Thoracic Spine 3V INDICATIONS: BACK PAIN VERBRA TECHNIQUE: 3 views of the thoracic spine were acquired. COMPARISON: None. FINDINGS: Bones: No fractures or dislocations. No suspicious bony lesions. 12 pairs of ribs are noted, and a ppear intact where visualized. Soft tissues: No paravertebral stripe thickening. IMPRESSION: No acute bony abnormality. No significant degenerative change. Reviewed by: Jimmy Da Silva MD on 08/08/2023 2:13 PM PST Approved by: Jimmy Da Silva MD on 08/08/2023 2:13 PM PST Station ID: [id number]
--- NOTE | 2023-08-08 14:15 | XRAY Report ---
PROCEDURE: Lumbar Spine 2-3V INDICATIONS: BACK PAIN TECHNIQUE: 3 views of the lumbar spine were acquired. COMPARISON: None. FINDINGS: Bones: 5 [id number]-[id number] vertebrae are present. Slight leftward curvature centered at L2. Grade 1 an terolisthesis of L4 on L5. Moderate disc height loss at all levels and facet arthrosis L3-S1. Soft tissues: Overlying bowel gas pattern is normal. No suspicious soft tissue calcifications. IMPRESSION: Moderate, multilevel degenerative disc disease and lower lumbar facet arthrosis. Grade 1 anterolisthesis of L4 on L5 secondary to facet arthrosis. Reviewed by: Jimmy Da Silva MD on 08/08/2023 2:13 PM PST Approved by: Jimmy Da Silva MD on 08/08/2023 2:13 PM PST Station ID: [id number]
== END 2023-08-08 11:06 | disposition home or self-care (01) ==
LOC: DI.S 11:05
PROVIDERS: ATTEND Physician Assistant Medical
DX: M47.816 Spondylosis without myelopathy or radiculopathy, lumbar region (principal); M47.817 Spondylosis without myelopathy or radiculopathy, lumbosacral region; M51.36 Other intervertebral disc degeneration, lumbar region; M51.37 Other intervertebral disc degeneration, lumbosacral region; M43.16 Spondylolisthesis, lumbar region

== ENCOUNTER 2024-02-08 08:11 | Outpatient (CLI) | payer MEDICARE ==
[2024-02-08 15:11] LABS: BASOPHILS % (AUTO) 0.7 %; EOSINOPHILS # (AUTO) 0.3 10^3/uL (0.0-0.7); EOSINOPHILS % (AUTO) 4.5 %; HCT - HEMATOCRIT 43.1 % (37.0-47.0); LYMPHOCYTES # (AUTO) 0.9 10^3/uL (1.5-3.5); LYMPHOCYTES % (AUTO) 16.8 %; MEAN CORPUSCULAR HEMOGLOBIN 26.6 pg (27.0-31.0); MEAN CORPUSCULAR HGB CONC 30.2 g/dL (32.0-36.0); MEAN CORPUSCULAR VOLUME 88.3 fL (81.0-99.0); MEAN PLATELET VOLUME 9.4 fL (7.9-10.8); MONOCYTES # (AUTO) 0.4 10^3/uL (0.0-1.0); MONOCYTES % (AUTO) 6.5 %; NEUTROPHILS % (AUTO) 71.3 %; PLT - PLATELET COUNT 196 10^3/uL (130-450); RED BLOOD COUNT 4.88 10^6/uL (4.20-5.40); WHITE BLOOD COUNT 5.6 x10^3/uL (4.8-10.8)
[2024-02-08 15:39] LABS: ESTIMATED AVERAGE GLUCOSE 117 mg/dL (70-100); HEMOGLOBIN A1c% 5.7 % (4.27-6.07)
[2024-02-08 15:41] LABS: CHOL/HDL RATIO 2.5 (<4.4); CHOLESTEROL 185 mg/dL; HDL CHOLESTEROL 73 mg/dL; LDL CHOLESTEROL,CALCULATED 93 mg/dL; LDL/HDL RATIO 1.3 (<4.4); TRIGLYCERIDES 96 mg/dL; VLDL CHOLESTEROL 19 mg/dL
[2024-02-08 15:45] LABS: ALBUMIN 3.8 g/dL (3.2-5.5); ALBUMIN/GLOBULIN RATIO 1.5 (1.0-2.2); ALKALINE PHOSPHATASE 86 IU/L (42-121); ALT ALANINE AMINOTRANSFERASE 10 IU/L (10-60); AST ASPARTATE AMINOTRANSFERASE 10 IU/L (10-42); BILIRUBIN,TOTAL 0.5 mg/dL (0.2-1.0); BUN - BLOOD UREA NITROGEN 23 mg/dL (6-20); CARBON DIOXIDE - CO2 33 mmol/L (21-32); CHLORIDE 105 mmol/L (101-111); CREATININE 0.6 mg/dL (0.6-1.3); GFR - MDRD 96 (>89); GLUCOSE 99 mg/dL (74-104); POTASSIUM 4.3 mmol/L (3.5-4.5); SODIUM 140 mmol/L (135-145); TOTAL PROTEIN 6.4 g/dL (6.4-8.9)
[2024-02-08 15:53] LABS: THYROID STIMULATING HORMONE 1.51 uIU/mL (0.34-5.60)
== END 2024-02-08 08:12 | disposition home or self-care (01) ==
LOC: LAB.S 08:11
PROVIDERS: ATTEND Nurse Practitioner Gerontology
DX: Z79.899 Other long term (current) drug therapy (principal); Z13.9 Encounter for screening, unspecified; K13.0 Diseases of lips
CPT/HCPCS: 36415; 80053; 80061; 82306; 82607; 83036; 83721; 84443; 85025